=== PATIENT | female | born 1995 | race Caucasian/White ===

== ENCOUNTER 2018-05-21 14:32 | Emergency (ER) | payer OTHER ==
[~2018-05-21] VITALS: Ht 170.2 cm; Wt 87.8 kg
[~2018-05-21 14:32] MED LIST: ANALPRAM HC 2.5%4 G1 PR; DICLEGIS DR 101 EACH PO; EFFEXOR XR75 MG PO; ENDOCET 5-3251 EACH PO; IBUPROFEN800 MG PO; IRON325 MG PO; PRENATAL TABLE1 EAC3 PO; PRILOSEC OTC20 MG PO; PROMETHAZINE HC25 M1 PO; XANAX1 MG PO; ZANTAC150 MG PO; ZOFRAN8 MG PO
[2018-05-21 14:46] VITALS: BP 165/87
[2018-05-21 16:02] LABS: HEMATOCRIT 43.8 % (36.0-46.0); HEMOGLOBIN 15.1 G/DL (11.9-15.5); MCH 30.8 PG (29.0-34.0); MCHC 34.5 G/DL (30.0-36.0); MCV 89.4 FL (83-99); PLATELET COUNT 186 K/uL (156-360); RBC DIS.WIDTH-CV 12.8 % (11.8-14.6); RBC DIS.WIDTH-SD 42.3 % (39-53); WHITE BLOOD COUNT 7.2 K/uL (4.1-10.2)
[2018-05-21 16:09] LABS: CHLORIDE 105 mEq/L (99-109); POTASSIUM 4.3 mEq/L (3.7-5.4); SODIUM 138 mEq/L (136-147)
[2018-05-21 16:11] LABS: GLUCOSE 92 mg/dL (70-99)
[2018-05-21 16:15] LABS: CREATININE 0.8 mg/dL (0.6-1.3); GFR ESTIMATE (CALCULATED) > 59 mL/min/
[2018-05-21 16:16] LABS: UREA NITROGEN (BUN) 8 mg/dL (9-23)
[2018-05-21 16:19] LABS: TROP-I INTERPRETATION NEGATIVE; TROPONIN-I < 0.01 ng/mL (0.0-0.30)
[2018-05-21] MEDS ORDERED: MOTRIN600 MG PO (17:28)
== END 2018-05-21 17:40 | disposition home or self-care (01) ==
LOC: EME 14:32
PROVIDERS: Physician Assistant
DX: R07.89 Other chest pain (principal); F41.9 Anxiety disorder, unspecified
CPT/HCPCS: 71046; 80048; 84484; 85027; 93005; 99281; 99284

== ENCOUNTER 2018-06-29 22:02 | Emergency (ER) | payer OTHER ==
[~2018-06-29] VITALS: Ht 170.2 cm; Wt 87.9 kg
[~2018-06-29 22:02] MED LIST changes: +MOTRIN600 MG PO
[2018-06-30] MEDS ORDERED: ZANTAC150 MG PO (00:45)
[2018-06-30] MEDS ORDERED: BENADRYL50 MG PO (00:45)
[2018-06-30] MEDS ORDERED: PREDNISONE20 MG PO (00:45)
[2018-06-30 01:01] VITALS: BP 119/74
== END 2018-06-30 01:06 | disposition home or self-care (01) ==
LOC: EME 22:02
DX: S00.522A Blister (nonthermal) of oral cavity, initial encounter (principal); T42.6X5A Adverse effect of other antiepileptic and sedative-hypnotic drugs, initial encounter; F41.9 Anxiety disorder, unspecified; F39 Unspecified mood [affective] disorder
CPT/HCPCS: 87081; 87651 90; 99281; 99284; J7512